=== PATIENT | female | born 1950 | race Caucasian/White ===

== ENCOUNTER 2021-11-16 10:23 | Day surgery (SDC) | payer MEDICARE, OTHER ==
[~2021-11-16 10:23] MED LIST: Lactated Ringers 1,000 ML IV SCH; Propofol 200 MG/20 ML SDV ONE; Sodium Chloride 0.9% 10 ML Syringe FLUSH PRN
[2021-11-16 13:49] VITALS: BP 131/79; PULSE 90
== END 2021-11-16 13:21 | disposition home or self-care (01) ==
LOC: LL.SDS 10:23
PROVIDERS: ATTEND Surgery
DX: Z12.11 Encounter for screening for malignant neoplasm of colon (principal); D12.3 Benign neoplasm of transverse colon; K57.30 Diverticulosis of large intestine without perforation or abscess without bleeding; K64.8 Other hemorrhoids; K63.89 Other specified diseases of intestine; I10 Essential (primary) hypertension; E78.5 Hyperlipidemia, unspecified; J44.9 Chronic obstructive pulmonary disease, unspecified; C34.91 Malignant neoplasm of unspecified part of right bronchus or lung; F17.210 Nicotine dependence, cigarettes, uncomplicated; Z79.899 Other long term (current) drug therapy
CPT/HCPCS: 00811; J7120

== ENCOUNTER 2023-11-02 13:04 | Emergency (ER) | payer MEDICARE ==
[2023-11-02] MEDS ORDERED: Naloxone 0.4 MG/ML SDV IVPUSH PRN ×2 (13:47→16:35)
[2023-11-02] MEDS: Midazolam 1 MG/ML 2 ML SDV IVPUSH ONE ×2 (16:44→16:55)
[2023-11-02] MEDS: fentaNYL 50 MCG/ML SDV IVPUSH ONE ×2 (16:45→16:55)
[2023-11-02] MEDS: Sodium Chloride 0.9% 10 ML Syringe FLUSH PRN (16:45)
[2023-11-02 17:42] VITALS: BP 164/71; PULSE 78
== END 2023-11-02 17:40 | disposition home or self-care (01) ==
LOC: LL.ED 13:04
DX: S62.620A Displaced fracture of middle phalanx of right index finger, initial encounter for closed fracture (principal); F17.210 Nicotine dependence, cigarettes, uncomplicated; I10 Essential (primary) hypertension; E78.00 Pure hypercholesterolemia, unspecified; Z86.16 Personal history of COVID-19; Z79.899 Other long term (current) drug therapy; Z79.82 Long term (current) use of aspirin; Z88.5 Allergy status to narcotic agent; W29.8XXA Contact with other powered hand tools and household machinery, initial encounter
CPT/HCPCS: 26770; 73140-F6; 99283-25; J2250; J3010; J3490